=== PATIENT | female | born 1990 | race Caucasian/White ===

== ENCOUNTER 2017-09-25 13:59 | Inpatient (IN) | payer OTHER ==
[2017-09-25] MEDS ORDERED: METHYLERGONOVINE 0.2 MG INJ IM ×2 (14:30→21:30)
[2017-09-25] MEDS ORDERED: CARBOPROST 250 MCG INJ IM ×2 (14:30→21:30)
[2017-09-25] MEDS ORDERED: MISOPROSTOL 200 MCG TAB PR ×2 (14:30→21:30)
[2017-09-25] MEDS ORDERED: OXYTOCIN 30 UNITS/LR 500 ML IV ×2 (14:30→21:30)
[2017-09-25] MEDS ORDERED: METOCLOPRAMIDE 10 MG INJ (14:46)
[2017-09-25] MEDS ORDERED: ONDANSETRON 4 MG INJ (14:46)
[2017-09-25] MEDS ORDERED: morphine SULFATE/PF (10 MG/10 ML) INJ (14:46)
[2017-09-25] MEDS ORDERED: KETOROLAC 30 MG INJ (14:46)
[2017-09-25] MEDS ORDERED: CITRIC ACID/SODIUM CITRATE 15 ML CUP ×2 (14:51→15:08)
[2017-09-25 14:52] LABS: ADD MAN DIFF? NO
[2017-09-25 14:55] LABS: WHITE BLOOD COUNT 10.7 10^3/ul (4.8-10.8)
[2017-09-25 14:55] LABS: ABNORMAL IP MESSAGE 1; BASOPHILS % 0.2 % (0.0-2.0); EOSINOPHILS % 0.2 % (0.0-7.0); HEMATOCRIT 38.1 % (37.0-47.0); HEMOGLOBIN 12.4 g/dl (12.0-16.0); MEAN CORPUSCULAR HGB CONC 32.5 g/dl (32.0-37.0); MEAN PLATELET VOLUME 13.1 fl (7.4-10.4); MONOCYTE # 0.5 10^3/ul (0.3-0.9); MONOCYTES % 4.3 % (0.0-11.0); NEUTROPHIL # 8.1 10^3/ul (1.6-7.5); PLATELET COUNT 167 10^3/UL (140-415); RED BLOOD COUNT 4.43 10^6/ul (4.20-5.40); RED CELL DISTRIBUTION WIDTH 13.3 % (11.5-14.5)
[2017-09-25 14:57] LABS: POSITIVE DIFF @See below
[2017-09-25] MEDS: LACTATED RINGER'S 1,000 ML IV (14:59)
[2017-09-25 15:27] LABS: INR 0.91; PROTIME 12.3 Sec (11.9-14.9)
[2017-09-25 15:28] LABS: PARTIAL THROMBOPLASTIN TIME 28.2 Sec (25.0-35.0)
[2017-09-25] MEDS: CITRIC ACID/SODIUM CITRATE 15 ML CUP PO (15:30)
[2017-09-25] MEDS ORDERED: DIPHENHYDRAMINE 50 MG INJ IV ×2 (15:30→17:00)
[2017-09-25] MEDS ORDERED: morphine (1 MG/ML) 10ML SYRINGE IV ×3 (15:30)
[2017-09-25] MEDS ORDERED: EPHEDrine SULFATE 50 MG/5 ML SYG (16:39)
[2017-09-25 16:53] LABS: HEPATITIS B SURFACE ANTIGEN NEGATIVE (NEGATIVE)
[2017-09-25] MEDS ORDERED: morphine 2 MG INJ IV ×3 (17:00)
[2017-09-25] MEDS ORDERED: ONDANSETRON 4 MG INJ IV (17:00)
[2017-09-25] MEDS ORDERED: NALOXONE (0.4 MG/ML) INJ IV (17:00)
[2017-09-25] MEDS: CEFAZOLIN 2 GM/50 ML (PMX) 50 ML IV (17:09)
[2017-09-25] MEDS: OXYTOCIN 30 UNITS/LR 500 ML IV ×3 (17:09→21:01)
[2017-09-25] MEDS: ONDANSETRON 4 MG INJ IV (17:20)
[2017-09-25] MEDS: METOCLOPRAMIDE 10 MG INJ IV (19:02)
[2017-09-25] MEDS: KETOROLAC 30 MG INJ IV (20:40)
[2017-09-25] MEDS ORDERED: NA PHOSPHATE/BIPHOS 133 ML ENEMA PR (21:30)
[2017-09-25] MEDS: CLINDAMYCIN 300 MG CAP PO (21:30)
[2017-09-25] MEDS: SENNA/DOCUSATE NA (8.6MG/50MG) TAB PO (21:30)
[2017-09-25 22:24] LABS: RAPID PLASMA REAGIN NONREACTIVE (NR)
[2017-09-26] MEDS: LACTATED RINGER'S 1,000 ML IV ×3 (01:15→08:30)
[2017-09-26] MEDS: CLINDAMYCIN 300 MG CAP PO ×4 (05:43→18:41)
[2017-09-26] MEDS: CEFAZOLIN 2 GM/50 ML (PMX) 50 ML IV ×3 (08:28→15:53)
[2017-09-26] MEDS: LANOLIN 7 GM TUBE TOP (08:29)
[2017-09-26] MEDS: SENNA/DOCUSATE NA (8.6MG/50MG) TAB PO ×2 (08:29→20:48)
[2017-09-26] MEDS: KETOROLAC 30 MG INJ IV ×2 (09:18→15:54)
[2017-09-26] MEDS: BISACODYL 10 MG SUPP PR (10:00)
[2017-09-26 11:11] LABS: ADD MAN DIFF? NO
[2017-09-26 11:13] LABS: BASOPHILS % 0.2 % (0.0-2.0); EOSINOPHILS % 0.2 % (0.0-7.0); HEMATOCRIT 29.5 % (37.0-47.0); HEMOGLOBIN 9.6 g/dl (12.0-16.0); LYMPHOCYTES # 1.8 10^3/ul (0.8-2.9); LYMPHOCYTES % 17.2 % (15.0-51.0); MEAN CORPUSCULAR HEMOGLOBIN 27.6 pg (29.0-33.0); MEAN CORPUSCULAR HGB CONC 32.5 g/dl (32.0-37.0); MEAN CORPUSCULAR VOLUME 84.8 fl (82.0-101.0); MEAN PLATELET VOLUME 12.4 fl (7.4-10.4); MONOCYTE # 0.7 10^3/ul (0.3-0.9); MONOCYTES % 6.8 % (0.0-11.0); NEUTROPHILS % 75.1 % (39.0-77.0); PLATELET COUNT 124 10^3/UL (140-415); RED BLOOD COUNT 3.48 10^6/ul (4.20-5.40); RED CELL DISTRIBUTION WIDTH 13.7 % (11.5-14.5)
[2017-09-26 11:13] LABS: WHITE BLOOD COUNT 10.7 10^3/ul (4.8-10.8)
[2017-09-26] MEDS: IBUPROFEN 800 MG TAB PO (21:42)
[2017-09-27] MEDS: CLINDAMYCIN 300 MG CAP PO ×4 (00:02→17:49)
[2017-09-27] MEDS: OXYCODONE/ACETAMINOPHEN (5/325) TAB PO (00:03)
[2017-09-27] MEDS: IBUPROFEN 800 MG TAB PO ×3 (05:47→21:50)
[2017-09-27] MEDS: SENNA/DOCUSATE NA (8.6MG/50MG) TAB PO ×2 (09:43→21:50)
[2017-09-27] MEDS: HYDROCODONE/APAP (5/325) TAB PO ×2 (09:44→17:49)
[2017-09-28] MEDS: CLINDAMYCIN 300 MG CAP PO ×4 (00:22→18:01)
[2017-09-28] MEDS: HYDROCODONE/APAP (5/325) TAB PO ×2 (00:22→18:06)
[2017-09-28] MEDS: IBUPROFEN 800 MG TAB PO ×2 (06:25→14:50)
[2017-09-28] MEDS: SENNA/DOCUSATE NA (8.6MG/50MG) TAB PO (09:48)
[2017-09-28] MEDS: DIPHTH/TET/ACEL PERTUSS (ADULT) 0.5 ML VIAL IM* (11:26)
[2017-10-01] MEDS ORDERED: MIDAZOLAM 1 MG/ML 2 ML INJ (07:46)
[2017-10-01] MEDS ORDERED: FENTAnyl 50 MCG/ML VIAL (07:46)
== END 2017-09-28 18:45 | disposition home or self-care (01) | DRG 766 ==
LOC: L-D 13:59 → PP1 20:53
PROVIDERS: Obstetrics & Gynecology
PROC: 10D00Z1 Extraction of Products of Conception, Low, Open Approach (ICD-10-PCS; principal; 2017-09-25 15:00)
PROC: 3E033VJ Introduction of Other Hormone into Peripheral Vein, Percutaneous Approach (ICD-10-PCS; 2017-09-25 15:00)
DX: O34.211 Maternal care for low transverse scar from previous cesarean delivery (principal); Z3A.38 38 weeks gestation of pregnancy; Z37.0 Single live birth
CPT/HCPCS: 85025; 85610; 85730; 86592; 86850; 86900; 86901; 87340; 90715; 94760; 99464